=== PATIENT | female | born 1970 | race Caucasian/White ===

== ENCOUNTER 2017-10-02 06:25 | Day surgery (SDC) | payer BC, OTHER ==
[~2017-10-02 06:25] MED LIST: Lactated Ringers 1,000 ML IV SCH; Sodium Chloride 0.9% 10 ML Syringe FLUSH PRN; Sodium Chloride 0.9% 2.5 ML Syringe FLUSH PRN; ceFAZolin 2 GM in Premix Bag 1 BAG IV ONE
--- NOTE | 2017-10-02 07:00 | PCM.PREANE ---
Preanesthetic Assessment - Anesthesia/Transfusion/Family Hx Anesthesia History: Prior Anesthesia Without Reaction Family History of Anesthesia Reaction: No Transfusion History: No Prior Transfusion(s) Intubation History: Unknown - Review of Systems General: No Symptoms Pulmonary: No Symptoms Cardiovascular: No Symptoms Gastrointestinal: No Symptoms Neurological: No Symptoms Other: Reports: None - Physical Assessment O2 Sat by Pulse Oximetry: 100 Respiratory Rate: 16 Vital Signs: Last Vital Signs Temp 36.6 C 10/02/17 06:30 Pulse 78 10/02/17 06:30 Resp 16 10/02/17 06:30 BP 113/74 10/02/17 06:30 Pulse Ox 100 10/02/17 06:30 Height: 1.85 m Weight: 78.018 kg ASA Class: 2 Mental Status: Alert & Oriented x3 Airway Class: Mallampati = 2 Dentition: Reports: Normal Dentition (grinded upper front tooth) Thyro-Mental Finger Breadths: 3 Mouth Opening Finger Breadths: 3 ROM/Head Extension: Full Lungs: Clear to Auscultation, Normal Respiratory Effort Cardiovascular: Regular Rate, Regular Rhythm - Allergies Allergies/Adverse Reactions: Allergies Allergy/AdvReac Type Severity Reaction Status Date / Time No Known Allergies Allergy Verified 09/27/17 08:13 - Blood Blood Available: No - Anesthesia Plan Pre-Op Medication Ordered: None - Acknowledgements Anesthesia Type Planned: General Anesthesia Pt an Appropriate Candidate for the Planned Anesthesia: Yes Alternatives and Risks of Anesthesia Discussed w Pt/Guardian: Yes Pt/Guardian Understands and Agrees with Anesthesia Plan: Yes PreAnesthesia Questionnaire HEENT History: Reports: Other (See Below) Other HEENT History: wears glasses Gastrointestinal History: Reports: None Genitourinary History: Reports: None 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: Endometriosis Musculoskeletal History: Reports: Arthritis, Back Pain, Chronic Neurological History: Reports: None Psychiatric History: Reports: Anxiety - Past Surgical History Head Surgeries/Procedures: Reports: None GI Surgical History: Reports: Appendectomy, Cholecystectomy, Hernia, Abdominal ( umbilical with mesh) Female Surgical History: Reports: Breast Biopsy, Oophorectomy (unilateral), Other (See Below) (hysteroscopy with endometrial ablation) Neurological Surgical History: Reports: Lumbar Spine, Scoliosis Other Neurological Surgeries/Procedures: spinal arthrodesis for deformity at age 14 (scoliosis) Oncologic Surgical History: Reports: Lumpectomy - SUBSTANCE USE Smoking Status *Q: Current Every Day Smoker (1 ppd) Tobacco Use Within Last Twelve Months: Cigarettes Recreational Drug Use History: No - HOME MEDS Home Medications: Home Meds Cyclobenzaprine HCl 1 tab PO ASDIRECTED PRN 09/27/17 [History] Hydrocodone/Acetaminophen [Hydrocodon-Acetaminophen 5-325] 1 tab PO ASDIRECTED PRN 09/27/17 [History] LORazepam 0.5 mg PO ASDIRECTED PRN 09/27/17 [History] - CURRENT (IN HOUSE) MEDS Current Meds: Current Medications Lactated Ringer's (Ringers, Lactated) 1,000 mls @ 125 mls/hr IV ASDIRECTED DAVID Last Admin: 10/02/17 06:34 Dose: 125 mls/hr Sodium Chloride (Saline Flush) 10 ml FLUSH ASDIRECTED PRN PRN Reason: Keep Vein Open Sodium Chloride (Saline Flush) 2.5 ml FLUSH ASDIRECTED PRN PRN Reason: Keep Vein Open Discontinued Medications Cefazolin Sodium/Dextrose 2 gm (/ Premix) 50 mls @ 100 mls/hr IV ONETIME ONE Stop: 09/30/17 14:34
[2017-10-02] MEDS ORDERED: Bupivacaine 0.5% 10 ML SDV ONE (07:28)
[2017-10-02] MEDS ORDERED: Succinylcholine/Normal Saline 200 MG/10 ML Syringe ONE (07:30)
[2017-10-02] MEDS ORDERED: Lidocaine 2% 5 ML SDV ONE (07:30)
[2017-10-02] MEDS ORDERED: Rocuronium 10 MG/ML 10 ML Syringe ONE (07:30)
[2017-10-02] MEDS ORDERED: fentaNYL 100 MCG/2 ML SDV ONE (07:31)
[2017-10-02] MEDS ORDERED: Midazolam 1 MG/ML 2 ML SDV ONE (07:31)
[2017-10-02] MEDS ORDERED: Propofol 200 MG/20 ML SDV ONE (07:31)
[2017-10-02] MEDS ORDERED: HYDROmorphone 2 MG/ML Syringe ONE (08:14)
[2017-10-02] MEDS ORDERED: Ondansetron 4 MG/2 ML SDV ONE (08:22)
[2017-10-02] MEDS ORDERED: Ketorolac 30 MG/ML SDV ONE (08:22)
[2017-10-02] MEDS ORDERED: Neostigmine Methylsulfate 1 MG/ML 5 ML Syringe ONE (08:22)
--- NOTE | 2017-10-02 08:52 | PCM.OPNOTE ---
- General Post-Op/Procedure Note Date of Surgery/Procedure: 10/02/17 Operative Procedure(s): Incisional hernia repair Findings: 1 cm defect in LUQ Pre Op Diagnosis: Incisional hernia Post-Op Diagnosis: Incisional hernia repair Anesthesia Technique: General ET Tube Primary Surgeon: Linh Maldonado EBColeen in mLs: 5 Condition: Good
[2017-10-02] MEDS ORDERED: Acetaminophen/oxyCODONE 325-5 MG Tab PO PRN (09:10)
[2017-10-02] MEDS ORDERED: Cyclobenzaprine 5 MG Tab PO SCH (09:15)
--- NOTE | 2017-10-02 09:16 | PCM.POSTAN ---
POST ANESTHESIA ASSESSMENT - MENTAL STATUS Mental Status: Alert, Oriented - RESPIRATORY Respiratory Status: Respiratory Rate WNL, Airway Patent, O2 Saturation Stable - CARDIOVASCULAR CV Status: Pulse Rate WNL, Blood Pressure Stable - GASTROINTESTINAL GI Status: No Symptoms - PAIN Pain Score: 6 - POST OP HYDRATION Hydration Status: Adequate & Stable - OBSERVATIONS Free Text/Narrative:: no anesthesia problems
--- NOTE | 2017-10-02 11:02 | OR ---
SURGEON: KAREN FU MD DATE OF PROCEDURE: 10/02/2017 PREOPERATIVE DIAGNOSIS: Incisional hernia. POSTOPERATIVE DIAGNOSIS: Incisional hernia. PROCEDURE PERFORMED: Incisional hernia repair. ANESTHESIA: General endotracheal anesthesia. FLUIDS: See anesthesia record. ESTIMATED BLOOD LOSS: 5 mL. FINDINGS: A 1 cm incisional hernia in the left upper quadrant. Hernia sac contained no intraabdominal contents. COMPLICATIONS: None. INDICATIONS: The patient is a 47-year-old female, who presents with an increasing bulge in the left upper quadrant. She had a previous port site in this area due to a previous surgery. CT of the abdomen and pelvis showed a corresponding hernia containing omentum. The patient and I discussed repairing this. I explained that this may be done primarily or with mesh. I explained the procedure, expected perioperative course, and risks including bleeding, infection, or damage to surrounding structures. The patient verbalized understanding and wishes to proceed. PROCEDURE IN DETAIL: The patient was brought into the OR and placed on the OR table in supine position. A time-out was completed verifying the patient's name, age, date of , allergies, and procedure to be performed. General endotracheal anesthesia was induced. The abdomen was prepped and draped in the usual standard fashion. The area over the hernia site had been marked in the preoperative area. I anesthetized the skin overlying this with 0.5% Marcaine plain. A 3 cm incision was made horizontally over this area using a 15 blade. Cautery was used to dissect down to the level of the fascia. A small defect was noted in the fascia measuring approximately 1 cm. The hernia sac was small and completely empty. I cleared away the fascia both above and below the defect to allow closure. Interrupted 0 Ethibond sutures were used to close the defect primarily. Care was taken to ensure that there was no damage to any underlying tissues in the abdomen. The subcutaneous fat was then closed with interrupted 3- 0 Vicryl suture. Skin was closed with running 4-0 Monocryl stitch. Steri- Strips and sterile dressings were applied. The patient was taken to the PACU in stable condition. GERA CUETO /[id number]
== END 2017-10-02 10:55 | disposition home or self-care (01) ==
LOC: MW.SDS 06:25
PROVIDERS: ATTEND Surgery
DX: K43.2 Incisional hernia without obstruction or gangrene (principal); G89.29 Other chronic pain; M54.9 Dorsalgia, unspecified; M19.90 Unspecified osteoarthritis, unspecified site; F17.210 Nicotine dependence, cigarettes, uncomplicated; Z98.1 Arthrodesis status; Z83.3 Family history of diabetes mellitus; Z79.899 Other long term (current) drug therapy; Z90.721 Acquired absence of ovaries, unilateral; Z90.710 Acquired absence of both cervix and uterus; Z90.49 Acquired absence of other specified parts of digestive tract; Z98.890 Other specified postprocedural states
CPT/HCPCS: 49560; A9270; J1170; J1885; J2250; J2405; J3010; J7120; 00750; J2704